=== PATIENT | female | born 1970 | race Caucasian/White ===

== ENCOUNTER → 2016-04-25 | Outpatient (CLI) | payer BC ==
--- NOTE | ~2016-04-25 | 24HR ---
[facility] [place] [address] 24 HR ELECTROCARDIOGRAM REPORT Name: EDMUND ZAPATA Room #: REG CL [facility]#: [id number] Admission: 04/25/16 Attend Phys: Raoul Orlando MD Discharge: Date of : 72 Date of Service: 04/25/16 1202 Report #: [id number] THIS REPORT FOR: //name// [facility] Test Date: 2016-04-25 Test Time: 12:02:00 Pat Name: EDMUND ZAPATA Department: Room: Gender: [employer]: : 1970 Requested By: Raoul Orlando Order Number: [id number] Elle MD: Lizandro Fry Interpretive Statements 1. Study duration 48hrs and technical quality acceptable. 2. Predominant rhythm was sinus with an average heart rate of 91bpm, range 53-145bpm. Longest RR interval 1.3sec. 3. Occasional atrial premature complexes and rare atrial couplets. No atrial fibrillation or atrial flutter. No heart block. No supraventricular tachycardia. 4. Occasional premature ventricular complexes. No ventricular tachycardia. 4. Symptoms reported at palpitations corresponded to isolated premature ventricular complexes. Electronically Signed On 04-30-2016 8:11:05 LOGISTICS CLERK by Lizandro Fry [email or web address] <ELECTRONICALLY SIGNED> By: Lizandro Fry MD, FACC 04/30/16 0811 120 120 Liznadro Fry MD, [facility] /EPI
== END ==
LOC: CV 11:21
DX: R00.2 Palpitations (principal)